=== PATIENT | female | born 1965 | race Two or more races ===

== ENCOUNTER 2019-11-10 13:00 | Outpatient (CLI) | payer MEDICAID ==
--- NOTE | 2019-11-10 13:32 | General Progress Note ---
Assessment/Plan Assessment/Plan: 1. The patient had a cholecystectomy back in 2018. 2. The patient has history of abdominal washout secondary to the appendix perforation. 3. History of . 4. fatty liver 5. GERD plan EGd nad colonoscopy Subjective ROS Limited/Unobtainable: Yes Allergies: Coded Allergies: LATEX (Verified Allergy, Unknown, 06/14/19) Objective General Appearance: alert EENT: normal ENT inspection Neck: supple Cardiovascular: normal rate Respiratory/Chest: chest wall non-tender Abdomen: normal bowel sounds, non tender, soft Extremities: non-tender Brady Sorto MD Nov 10, 2019 13:32
== END 2019-11-10 15:00 | disposition home or self-care (01) ==
LOC: PAN 13:00
DX: K21.9 Gastro-esophageal reflux disease without esophagitis (principal); K76.0 Fatty (change of) liver, not elsewhere classified; Z91.040 Latex allergy status; Z90.49 Acquired absence of other specified parts of digestive tract
CPT/HCPCS: 99212